=== PATIENT | female | born 1965 | race Caucasian/White ===

== ENCOUNTER 2016-09-19 06:56 | Emergency (ER) | payer OTHER ==
[~2016-09-19] VITALS: Ht 157.5 cm; Wt 67.7 kg
[2016-09-19] MEDS ORDERED: METO25TA35 PO (07:14)
[2016-09-19] MEDS ORDERED: SODIUM CHLORIDE 0.9% 1,000 ML IV ONE (07:19)
[2016-09-19] MEDS ORDERED: SODIUM CHLORIDE FLUSH 10ML SYR IVF ONE (07:30)
[2016-09-19] MEDS ORDERED: SODIUM CHLORIDE 0.9% 1,000ML IVBOLUS ONE ×2 (07:30→10:30)
[2016-09-19] MEDS ORDERED: FAMOTIDINE 20 MG/2 ML IVP ONE (07:30)
[2016-09-19] MEDS ORDERED: ONDANSETRON 2MG/ML, 2ML IVPush ONE (07:30)
[2016-09-19] MEDS ORDERED: ONDANSETRON 2MG/ML, 2ML ONE (07:45)
[2016-09-19] MEDS ORDERED: FAMOTIDINE 20 MG/2 ML ONE (07:46)
[2016-09-19] MEDS ORDERED: DEXL60CA PO (07:47)
[2016-09-19] MEDS ORDERED: HYDROmorphone 1 MG/ML, 1ML ONE (08:14)
[2016-09-19] MEDS ORDERED: HYDROmorphone 1 MG/ML, 1ML IVPush PRN (08:30)
[2016-09-19 08:32] LABS: BLOOD UREA NITROGEN 17 mg/dL (7-18)
[2016-09-19 08:36] LABS: ASPARTATE AMINO TRANSFERASE 13 U/L (15-37)
[2016-09-19 08:37] LABS: HEMOGLOBIN 12.9 g/dL (11.7-16.4); WHITE BLOOD COUNT 5.2 x10^3/uL (3.4-10)
[2016-09-19] MEDS ORDERED: ACETAMINOPHEN 500 MG TABLET ONE (10:06)
[2016-09-19] MEDS ORDERED: ACETAMINOPHEN 500 MG TABLET PO ONE (10:30)
[2016-09-19 11:44] VITALS: BP 114/61
== END 2016-09-19 11:46 | disposition home or self-care (01) ==
LOC: ED 10:45
DX: A08.4 Viral intestinal infection, unspecified (principal); E86.0 Dehydration; K21.9 Gastro-esophageal reflux disease without esophagitis; Z88.2 Allergy status to sulfonamides
CPT/HCPCS: 36415; 74020; 80053; 81003; 83690; 85025; 93005; 96361; 96374; 96375; 99285; J1170; J2405; J7030; S0028